=== PATIENT | male | born 1945 | race Hispanic/Latino ===

== ENCOUNTER 2017-08-02 12:02 | Observation (INO) | payer OTHER, MEDICARE ==
--- NOTE | 2017-08-02 13:10 | C.PDOC ---
History Of Present Illness 72-year-old male, presents to the emergency department with complaints of head injury. Patient states while he was at work this morning, several boxes fell onto the right side of his head and neck. Patient notes questionable LOC. Denies any numbness/weakness, dizziness, nausea/vomiting, fever, chills, chest pain, shortness of breath or any other associated symptoms. No other complaints at this time. - HPI Time Seen by Provider: 08/02/17 12:07 Chief Complaint (Nursing): Trauma History Per: Patient History/Exam Limitations: no limitations Onset/Duration Of Symptoms: Days Recent travel outside of the [place]: No Past Medical History Reviewed: Historical Data, Nursing Documentation, Vital Signs Vital Signs: Last Vital Signs Temp 97.5 F L 08/02/17 12:06 Pulse 55 L 08/02/17 15:14 Resp 18 08/02/17 15:14 BP 131/76 08/02/17 15:14 Pulse Ox 97 08/02/17 15:14 - Medical History PMH: Alzheimer's Disease, HTN, Hyperlipidemia, Hypothyroidism Family History: States: No Known Family Hx - Social History Hx Alcohol Use: No Hx Substance Use: No - Immunization History Hx Tetanus Toxoid Vaccination: No Hx Influenza Vaccination: No Hx Pneumococcal Vaccination: No Review Of Systems Constitutional: Negative for: Fever, Chills Cardiovascular: Negative for: Chest Pain Respiratory: Negative for: Cough, Shortness of Breath Gastrointestinal: Negative for: Nausea, Vomiting Genitourinary: Negative for: Dysuria, Frequency, Rash Musculoskeletal: Positive for: Neck Pain. Negative for: Back Pain Skin: Negative for: Rash Neurological: Negative for: Weakness, Numbness, Headache, Dizziness Physical Exam - Physical Exam Appears: Non-toxic, No Acute Distress Skin: Normal Color, Warm, Dry, No Rash Head: Normacephalic, Tenderness (Mild, to the right temporal scalp.) Eye(s): bilateral: Normal Inspection, PERRL, EOMI Ear(s): Bilateral: Normal (No bleeding, erythema) Nose: Normal Oral Mucosa: Moist Lips: Normal Appearing Neck: Normal ROM, Paracervical Tenderness (Mild swelling, right), Supple Chest: Symmetrical Cardiovascular: Rhythm Regular, No Friction Rub, No Murmur Respiratory: Normal Breath Sounds, No Accessory Muscle Use Gastrointestinal/Abdominal: Soft, No Tenderness Back: Normal Inspection, No CVA Tenderness Extremity: Normal ROM, No Deformity, No Swelling Neurological/Psych: Oriented x3, Normal Speech, Normal Motor Gait: Steady ED Course And Treatment - Laboratory Results Result Diagrams: 08/02/17 15:11 08/02/17 15:11 O2 Sat by Pulse Oximetry: 98 (RA) Pulse Ox Interpretation: Normal Medical Decision Making Medical Decision Making: On re-exam, the patient is resting comfortably. No neuro focal deficits. The patient will need to stay for observation as there is history of anti- coagulation with head injury. Disposition - Disposition Disposition: HOSPITALIZED Disposition Time: 16:14 Condition: GOOD Forms: [employer] (Yoruba) - POA Present On Arrival: None - Clinical Impression Clinical Impression: Head injury - Scribe Statement The provider has reviewed the documentation as recorded by the Scribe (Saúl Stephen) All medical record entries made by the Scribe were at my direction and personally dictated by me. I have reviewed the chart and agree that the record accurately reflects my personal performance of the history, physical exam, medical decision making, and the department course for this patient. I have also personally directed, reviewed, and agree with the discharge instructions and disposition.
--- NOTE | 2017-08-02 14:14 | CT ---
PROCEDURE: CT HEAD WITHOUT CONTRAST. HISTORY: head injury to the left side, COMPARISON: None available. TECHNIQUE: Axial computed tomography images were obtained through the head/brain without intravenous contrast. Radiation dose: Total exam DLP = 882.18 mGy-cm. This CT exam was performed using one or more of the following dose reduction techniques: Automated exposure control, adjustment of the mA and/or kV according to patient size, and/or use of iterative reconstruction technique. FINDINGS: HEMORRHAGE: No intracranial hemorrhage. BRAIN: The kuo-white matter differentiation is well preserved. There are infrequent scattered cerebral sulcal/cortical calcifications likely reflecting postinfectious or possible postinflammatory etiology in the past. There is no mass effect or definitive edema pattern appreciated including the cortex. No suspicious extra-axial fluid collection is identified in the midline brain anatomy appears grossly nonfocal as imaged. VENTRICLES: Unremarkable. No hydrocephalus. CALVARIUM: No destructive bony lesion or displaced fracture identified including through the skullbase. PARANASAL SINUSES: Unremarkable as visualized. No significant inflammatory changes. MASTOID AIR CELLS: Unremarkable as visualized. No inflammatory changes. OTHER FINDINGS: None. IMPRESSION: No definite acute findings by standard CT criteria. A few scattered sulcal/ cortical calcifications are identified in the bilateral cerebral hemispheres suggesting past infectious or inflammatory etiology.
--- NOTE | 2017-08-02 14:23 | CT ---
PROCEDURE: CT Cervical Spine without contrast HISTORY: neck trauma, Left sided COMPARISON: None available. TECHNIQUE: Axial computed tomography images were obtained of the cervical spine without the use of intravenous contrast. Coronal and sagittal reformatted images were created and reviewed. Radiation dose: Total exam DLP = 545.52 mGy-cm. This CT exam was performed using one or more of the following dose reduction techniques: Automated exposure control, adjustment of the mA and/or kV according to patient size, and/or use of iterative reconstruction technique. FINDINGS: VERTEBRAE: No fracture. Normal alignment. No destructive bony lesion. DISCS/SPINAL CANAL/NEURAL FORAMINA: At C2-3, there is a mild disc bulge and central disc protrusion causing mild central canal stenosis. No bony central canal stenosis. Neural foramina appear adequately patent. At C3-4, a disc osteophyte complex is identified causing mild central canal stenosis with prominent osteophytes resulting in mild left and moderate to severe right neural foraminal stenosis. At C4-5, a generalized disc bulge inverse the ventral thecal sac causing borderline central stenosis. Osteophytes result in moderate right and borderline left neural foraminal stenoses. At C5-6, a disc osteophyte complex identified causing mild central canal stenosis with degenerative moderate left and moderate to severe right neural foraminal stenoses present. At C6-7, an asymmetric disc osteophyte complex results in borderline central stenosis, greater the left and right, with foraminal osteophytes resulting in moderate bilateral neural foraminal stenosis. At C7-T1, there are no pertinent findings. PARASPINAL SOFT TISSUES: Unremarkable. OTHER FINDINGS: None. IMPRESSION: 1. Normal cervical curvature. No fracture or spondylolisthesis identified at this time. No destructive bony lesion. 2. Multilevel cervical spondylosis, uncovertebral and facet arthropathy are identified diffusely with multilevel mild central canal stenoses and variable bilateral neural foraminal stenoses as discussed above. A small central disc protrusion overlies mild generalized disc bulging at C2-3. Note additional definitive disc herniation appreciable. MRI is more sensitive and can be performed electively, if clinically warranted.
[2017-08-02 15:16] LABS: BASO # 0.1 K/uL (0.0-0.2); BASO % 1.2 % (0.0-2.0); EOS # 0.2 K/uL (0.0-0.7); EOS % 3.1 % (0.0-4.0); HEMOGLOBIN 12.8 g/dL (12.0-18.0); LYMPH # 1.9 K/uL (1.0-4.3); MEAN CELL VOLUME 84.9 fL (80.0-94.0); MEAN CORPUSCULAR HEMOGLOBIN 28.8 pg (27.0-31.0); MEAN CORPUSCULAR HGB CONC 33.9 g/dL (33.0-37.0); MEAN PLATELET VOLUME 8.6 fL (7.2-11.7); MONO # 0.5 K/uL (0.0-0.8); MONO % 8.5 % (0.0-10.0); NEUT # 3.6 K/uL (1.8-7.0); NEUT % 57.2 % (50.0-75.0); RBC 4.44 Mil/uL (4.40-5.90); RED CELL DISTRIBUTION WIDTH 14.6 % (11.5-14.5); WHITE BLOOD COUNT 6.3 K/uL (4.8-10.8)
[2017-08-02 15:24] LABS: INR 1.1; PROTHROMBIN TIME 12.4 SECONDS (9.7-12.2)
[2017-08-02 15:31] LABS: ALB/GLOB RATIO 1.2 (1.0-2.1); ALBUMIN 4.4 g/dL (3.5-5.0); ALT/SGPT 19 U/L (21-72); AST/SGOT 23 U/L (17-59); BLOOD UREA NITROGEN 18 mg/dL (9-20); CALCIUM 9.1 mg/dl (8.6-10.4); GFR AFRICAN-AMERICAN > 60; GFR NON-AFRICAN AMERICAN 60
--- NOTE | 2017-08-02 17:14 | CP.PCM.HP ---
History of Present Illness - History of Present Illness History of Present Illness: HPI: Patient is a 72 year old male with a past medical history of HTN, CAD with LAD stent, HLD, who presents to the ED post head trauma. Patient was at work when several boxes from a top shelf fell onto the right side of his head, neck and shoulder. Patient complains of headache, pain on his scalp, neck pain, and denies shoulder and arm pain. Patient states the pain is worse with movements. Patient also felt dizzy and his vision went black when the boxes hit him, but resolved shortly after. He is not sure if he lost consciousness, but he felt disoriented after the first few boxes hit him. The patient currently denies dizziness, dizziness with ambulation and ambulatory difficulties. Patient denies chest pain, dyspnea, palpitations, abdominal pain, nausea, vomiting, fevers, leg pain, leg swelling. PMD: none PMHx: HTN, CAD with LAD stent, HLD SurgHx: Mid LAD Stent in 2011, eye surgery-bilateral cataracts FamHx: Father- [place] SocHx: denies tobacco, alcohol, and drug use; former social drinker. lives with in [place]. Allergies: NKDA Medications: Brillinta BID, asa 81mg PO daily, atorvastatin 20mg PO HS, and a BP medication. Present on Admission - Present on Admission Any Indicators Present on Admission: No Review of Systems - Constitutional Constitutional: Headache. absent: Chills, Fever, Weakness - EENT Eyes: Change in Vision (resolved) Ears: Dizziness (with ambulation) - Cardiovascular Cardiovascular: absent: Chest Pain, Dyspnea, Leg Edema, Palpitations, Rapid Heart Rate - Respiratory Respiratory: absent: Cough, Dyspnea - Gastrointestinal Gastrointestinal: absent: Abdominal Pain, Constipation, Diarrhea, Nausea, Vomiting - Genitourinary Genitourinary: absent: Dysuria - Musculoskeletal Musculoskeletal: Limited Range of Motion (rotation, extension, and flexion of neck due to pain), Neck Pain - Integumentary Integumentary: absent: Bleeding Lesions, Lesions, Unusual Bruising - Neurological Neurological: Dizziness (resolved), Headaches - Psychiatric Psychiatric: absent: Confusion - Endocrine Endocrine: absent: Palpitations Past Patient History - Infectious Disease Hx of Infectious Diseases: None - Past Medical History & Family History Past Medical History?: Yes - Past Social History Smoking Status: Never Smoked - CARDIAC Hx Hypertension: Yes - PULMONARY Hx Respiratory Disorders: No - NEUROLOGICAL Hx Alzheimer's Disease: Yes - HEENT Hx HEENT Problems: Yes Hx Cataracts: Yes (bilat iol) - RENAL Hx Chronic Kidney Disease: No - ENDOCRINE/METABOLIC Hx Hypothyroidism: Yes - HEMATOLOGICAL/ONCOLOGICAL Hx Blood Disorders: No - INTEGUMENTARY Hx Dermatological Problems: No - MUSCULOSKELETAL/RHEUMATOLOGICAL Hx Musculoskeletal Disorders: No - GASTROINTESTINAL Hx Gastrointestinal Disorders: No - GENITOURINARY/GYNECOLOGICAL Hx Genitourinary Disorders: No - PSYCHIATRIC Hx Substance Use: No - SURGICAL HISTORY Hx Surgeries: Yes Hx Cataract Extraction: Yes (bilat iol) Hx Open Heart Surgery: Yes Hx Valve Replacement: Yes - ANESTHESIA Hx Anesthesia: Yes Hx Anesthesia Reactions: No Hx Malignant Hyperthermia: No Meds Allergies/Adverse Reactions: Allergies Allergy/AdvReac Type Severity Reaction Status Date / Time No Known Allergies Allergy Verified 08/02/17 12:13 Physical Exam - Constitutional Appears: No Acute Distress - Head Exam Head Exam: ATRAUMATIC, NORMAL INSPECTION, NORMOCEPHALIC - Eye Exam Eye Exam: EOMI, PERRL Additional comments: Decreased visual acuity - ENT Exam ENT Exam: Mucous Membranes Moist - Neck Exam Neck exam: Positive for: Tenderness (with palpation of neck, trapezius and paraspinal tenderness). Negative for: Full Rom (decreased ROM due to pain with movement) - Respiratory Exam Respiratory Exam: Clear to Auscultation Bilateral, NORMAL BREATHING PATTERN. absent: Rales, Rhonchi, Wheezes, Respiratory Distress - Cardiovascular Exam Cardiovascular Exam: REGULAR RHYTHM, +S1, +S2 - GI/Abdominal Exam GI & Abdominal Exam: Normal Bowel Sounds, Soft. absent: Distended, Firm, Tenderness - Extremities Exam Extremities exam: Positive for: full ROM (UE and LE bilaterally), normal inspection, pedal pulses present. Negative for: pedal edema, tenderness - Back Exam Back exam: paraspinal tenderness (neck, upper thoracic) - Neurological Exam Neurological exam: Alert, CN II-XII Intact, Normal Gait, Oriented x3 - Psychiatric Exam Psychiatric exam: Normal Affect, Normal Mood - Skin Skin Exam: Dry, Intact, Normal Color, Warm Results - Vital Signs Recent Vital Signs: Last Vital Signs Temp 97.5 F L 08/02/17 12:06 Pulse 55 L 08/02/17 15:14 Resp 18 08/02/17 15:14 BP 131/76 08/02/17 15:14 Pulse Ox 98 08/02/17 16:22 - Labs Result Diagrams: 08/02/17 15:11 08/02/17 15:11 Labs: Laboratory Results - last 24 hr 08/02/17 08/02/17 08/02/17 15:11 15:11 15:11 WBC 6.3 RBC 4.44 Hgb 12.8 Hct 37.7 MCV 84.9 MCH 28.8 MCHC 33.9 RDW 14.6 H Plt Count 271 MPV 8.6 Neut % (Auto) 57.2 Lymph % (Auto) 30.0 [place] % (Auto) 8.5 Eos % (Auto) 3.1 Baso % (Auto) 1.2 Neut # (Auto) 3.6 Lymph # (Auto) 1.9 [place] # (Auto) 0.5 Eos # (Auto) 0.2 Baso # (Auto) 0.1 PT 12.4 H INR 1.1 APTT 37 H Sodium 142 Potassium 4.2 Chloride 102 Carbon Dioxide 28 Anion Gap 17 BUN 18 Creatinine 1.2 Est GFR ( Amer) > 60 Est GFR (Non-Af Amer) 60 Random Glucose 94 Calcium 9.1 Total Bilirubin 0.7 AST 23 ALT 19 L Alkaline Phosphatase 91 Total Protein 8.3 Albumin 4.4 Globulin 3.9 Albumin/Globulin Ratio 1.2 Assessment & Plan (1) Head injury Assessment and Plan: Admitted for observation. Patient takes Brillinta PO BID at home for CAD w/stent- HOLD Neurology consulted, Dr. Allison- help appreciated Tylenol prn for pain Continue to monitor Imaging: * Head CT: No definite acute findings by standard CT criteria. A few scattered sulcal/ cortical calcifications are identified in the bilateral cerebral hemispheres suggesting past infectious or inflammatory etiology. * Cervical spine CT: Normal cervical curvature. No fracture or spondylolisthesis identified at this time. No destructive bony lesion; Multilevel cervical spondylosis, uncovertebral and facet arthropathy are identified diffusely with multilevel mild central canal stenoses and variable bilateral neural foraminal stenoses as discussed above. A small central disc protrusion overlies mild generalized disc bulging at C2-3. Note additional definitive disc herniation appreciable. MRI is more sensitive and can be performed electively, if clinically warranted. Status: Acute (2) HTN (hypertension) Assessment and Plan: Patient does not know name of medication he takes at home. Continue to monitor vitals. Status: Acute (3) CAD (coronary artery disease) Assessment and Plan: Home medication: Brillinta 90mg PO BID, ASA 81mg PO daily Hold at this time Status: Acute (4) HLD (hyperlipidemia) Assessment and Plan: Home medication: Atorvastatin 20mg PO HS Started Crestor 10mg PO HS Status: Acute (5) Prophylactic measure Assessment and Plan: DVT: SCDs, no chemical anticoagulation due to head trauma Heart healthy diet, 2g Na Status: Acute
[2017-08-02 17:25] VITALS: RESP 20
[2017-08-03 07:24] LABS: BASO # 0.1 K/uL (0.0-0.2); BASO % 1.2 % (0.0-2.0); EOS # 0.3 K/uL (0.0-0.7); HEMOGLOBIN 12.4 g/dL (12.0-18.0); LYMPH # 1.9 K/uL (1.0-4.3); LYMPH % 29.1 % (20.0-40.0); MEAN CELL VOLUME 84.3 fL (80.0-94.0); MEAN CORPUSCULAR HEMOGLOBIN 29.1 pg (27.0-31.0); MEAN CORPUSCULAR HGB CONC 34.5 g/dL (33.0-37.0); MEAN PLATELET VOLUME 8.4 fL (7.2-11.7); MONO # 0.6 K/uL (0.0-0.8); MONO % 8.4 % (0.0-10.0); NEUT # 3.7 K/uL (1.8-7.0); NEUT % 56.3 % (50.0-75.0); RBC 4.28 Mil/uL (4.40-5.90); RED CELL DISTRIBUTION WIDTH 14.3 % (11.5-14.5); WHITE BLOOD COUNT 6.6 K/uL (4.8-10.8)
[2017-08-03 07:40] VITALS: O2SAT 96
[2017-08-03] MEDS ORDERED: Pneumococcal 23-Valent Vaccine IM ONE (08:00)
[2017-08-03 08:02] LABS: ALB/GLOB RATIO 1.3 (1.0-2.1); ALBUMIN 4.2 g/dL (3.5-5.0); ALT/SGPT 19 U/L (21-72); AST/SGOT 27 U/L (17-59); BLOOD UREA NITROGEN 19 mg/dL (9-20); CALCIUM 8.7 mg/dl (8.6-10.4); GFR AFRICAN-AMERICAN > 60; GFR NON-AFRICAN AMERICAN 60
--- NOTE | 2017-08-03 14:53 | CP.PCM.DIS ---
Provider - Provider Date of Admission: 08/02/17 16:05 Attending physician: Gisell Hylton MD Consults: Dr. Allison (neuro) Time Spent in preparation of Discharge (in minutes): 35 Diagnosis - Discharge Diagnosis (1) Head injury Status: Acute (2) CAD (coronary artery disease) Status: Chronic (3) HLD (hyperlipidemia) Status: Chronic (4) HTN (hypertension) Status: Chronic Hospital Course - Lab Results Lab Results: Most Recent Lab Values WBC 6.6 K/uL (4.8-10.8) 08/03/17 07:17 RBC 4.28 Mil/uL (4.40-5.90) L 08/03/17 07:17 Hgb 12.4 g/dL (12.0-18.0) 08/03/17 07:17 Hct 36.1 % (35.0-51.0) 08/03/17 07:17 MCV 84.3 fL (80.0-94.0) 08/03/17 07:17 MCH 29.1 pg (27.0-31.0) 08/03/17 07:17 MCHC 34.5 g/dL (33.0-37.0) 08/03/17 07:17 RDW 14.3 % (11.5-14.5) 08/03/17 07:17 Plt Count 277 K/uL (130-400) 08/03/17 07:17 MPV 8.4 fL (7.2-11.7) 08/03/17 07:17 Neut % (Auto) 56.3 % (50.0-75.0) 08/03/17 07:17 Lymph % (Auto) 29.1 % (20.0-40.0) 08/03/17 07:17 [place] % (Auto) 8.4 % (0.0-10.0) 08/03/17 07:17 Eos % (Auto) 5.0 % (0.0-4.0) H 08/03/17 07:17 Baso % (Auto) 1.2 % (0.0-2.0) 08/03/17 07:17 Neut # (Auto) 3.7 K/uL (1.8-7.0) 08/03/17 07:17 Lymph # (Auto) 1.9 K/uL (1.0-4.3) 08/03/17 07:17 [place] # (Auto) 0.6 K/uL (0.0-0.8) 08/03/17 07:17 Eos # (Auto) 0.3 K/uL (0.0-0.7) 08/03/17 07:17 Baso # (Auto) 0.1 K/uL (0.0-0.2) 08/03/17 07:17 PT 12.4 SECONDS (9.7-12.2) H 08/02/17 15:11 INR 1.1 08/02/17 15:11 APTT 37 SECONDS (21-34) H 08/02/17 15:11 Sodium 140 mmol/L (132-148) 08/03/17 07:17 Potassium 4.2 mmol/L (3.6-5.2) 08/03/17 07:17 Chloride 102 mmol/L (98-107) 08/03/17 07:17 Carbon Dioxide 28 mmol/L (22-30) 08/03/17 07:17 Anion Gap 14 (10-20) 08/03/17 07:17 BUN 19 mg/dL (9-20) 08/03/17 07:17 Creatinine 1.2 mg/dL (0.8-1.5) 08/03/17 07:17 Est GFR ( Amer) > 60 08/03/17 07:17 Est GFR (Non-Af Amer) 60 08/03/17 07:17 Random Glucose 105 mg/dL (75-110) 08/03/17 07:17 Calcium 8.7 mg/dl (8.6-10.4) 08/03/17 07:17 Total Bilirubin 0.7 mg/dL (0.2-1.3) 08/03/17 07:17 AST 27 U/L (17-59) 08/03/17 07:17 ALT 19 U/L (21-72) L 08/03/17 07:17 Alkaline Phosphatase 89 U/L (38-126) 08/03/17 07:17 Total Protein 7.4 g/dL (6.3-8.3) 08/03/17 07:17 Albumin 4.2 g/dL (3.5-5.0) 08/03/17 07:17 Globulin 3.2 gm/dL (2.2-3.9) 08/03/17 07:17 Albumin/Globulin Ratio 1.3 (1.0-2.1) 08/03/17 07:17 - Hospital Course Hospital Course: "Patient is a 72 year old male with a past medical history of HTN, CAD with LAD stent, HLD, who presents to the ED post head trauma. Patient was at work when several boxes from a top shelf fell onto the right side of his head, neck and shoulder. Patient complains of headache, pain on his scalp, neck pain, and denies shoulder and arm pain. Patient states the pain is worse with movements. Patient also felt dizzy and his vision went black when the boxes hit him, but resolved shortly after. He is not sure if he lost consciousness, but he felt disoriented after the first few boxes hit him. The patient currently denies dizziness, dizziness with ambulation and ambulatory difficulties. Patient denies chest pain, dyspnea, palpitations, abdominal pain, nausea, vomiting, fevers, leg pain, leg swelling. " Patient admitted for observation of left sided head injury. Patient's home medication Brillinta 90mg PO BID was held. CT without contrast showed no acute findings; however, there were bilateral calcifications indicating past infection or inflammation. Neurology was consulted. Patient was given Tylenol PRN for pain. Patient had CT of cervical spine without contrast. There was no fracture or destructive bony lesions noted. Patient stable for discharge as per neurology and will need to follow up with his primary doctor for evaluation of his chronic decreased peripheral vision. Patient has PMH of HTN. On admission his BP was 112/72. He was unsure of name of home medication. Patient was not given any medications for HTN and was monitored. BP was stable throughout hospital course. Patient has PMH of CAD; however due to bleeding risk from head trauma Brillinta 90 PO BID was held. Patient has PMH of HLD. Home medication is Atorvastatin 20mg PO HS. He was started on Crestor 10mg PO HS. Patient stable for discharge. Patient to resume home medications and follow up with primary. This is a hospital Discharge Exam - Head Exam Head Exam: ATRAUMATIC, NORMAL INSPECTION, NORMOCEPHALIC Discharge Plan - Follow Up Plan Condition: GOOD Disposition: HOME/ ROUTINE Additional Instructions: Patient stable for discharge as per Dr. Hylton and Dr. Allison. Patient to continue home medications as prescribed. Patient to follow up with primary care doctor within 1 week. Patient will need to be evaluated for chronic decreased peripheral vision. Patient to take Tylenol 650mg po every 6 hours if needed. Patient to please return to Emergency Room if headache or neck pain worsens. Patient explained instructions who understands and agrees.
[2017-08-03 16:34] VITALS: BP 145/73; PULSE 62; TEMP 97.7
== END 2017-08-03 17:35 | disposition home or self-care (01) ==
LOC: C.ER 12:02 → C.9E 16:05 → C.3T 17:11
PROVIDERS: ADMIT Internal Medicine; ATTEND Internal Medicine
DX: S09.90XA Unspecified injury of head, initial encounter (principal); S19.9XXA Unspecified injury of neck, initial encounter; X58.XXXA Exposure to other specified factors, initial encounter; E03.9 Hypothyroidism, unspecified; E78.5 Hyperlipidemia, unspecified; G30.9 Alzheimer's disease, unspecified; I10 Essential (primary) hypertension; I25.10 Atherosclerotic heart disease of native coronary artery without angina pectoris; Z79.82 Long term (current) use of aspirin; Z95.2 Presence of prosthetic heart valve; Z95.5 Presence of coronary angioplasty implant and graft
CPT/HCPCS: 36415; 70450; 72125; 80053; 85025; 85610; 85730; 99285; G0378